=== PATIENT | male | born 1965 | race Caucasian/White ===

== ENCOUNTER 2017-10-19 06:07 | Emergency (ER) | payer OTHER ==
[~2017-10-19] VITALS: Ht 177.8 cm; Wt 102.1 kg
--- NOTE | ~2017-10-19 | EKG ---
[place] [address] [address] [place] [address] ELECTROCARDIOGRAM REPORT Name: CHRISTINA GOLDEN Room #: DEP Frantz#: [id number] Admission: 10/19/17 Attend Phys: Discharge: 10/19/17 Date of : 65 Report #: [id number] THIS REPORT FOR: //name// [facility] ED Test Date: 2017-10-19 Test Time: 06:20:47 Pat Name: CHRISTINA GOLDEN Department: Room: Gender: [employer]sembling [employer]: ELIJAH : 1965 Requested By: Na Vines Order Number: [id number] MD: Saurabh Tineo Measurements Intervals [place] Rate: 72 P: 47 SC: 163 QRS: 53 QRSD: 91 T: -16 QT: 393 QTc: 431 Interpretive Statements Sinus rhythm Borderline T abnormalities, inferior leads No previous ECG available for comparison Electronically Signed On 10-20-2017 14:03:59 CDT by Saurabh Tineo [email or web address] <ELECTRONICALLY SIGNED> By: Saurabh Tineo MD, [facility] 10/20/17 1403 0620 9 Saurabh Tineo MD, FACC /EPI
[~2017-10-19 06:07] MED LIST: ADVIL100 M2 PO
[2017-10-19] MEDS ORDERED: AVAPRO75 MG PO (06:15)
[2017-10-19 07:57] LABS: ABSOLUTE NEUTROPHILS 3.5 thou/uL (1.4-8.2); BASOPHILS 0.7 % (0.0-2.0); EOSINOPHILS 1.4 % (0.0-3.0); HEMATOCRIT 39.6 % (42.0-52.0); HEMOGLOBIN 13.5 gm/dL (14.0-18.0); LYMPHOCYTES 27.4 % (24.0-44.0); MCH 29.7 pg (26.0-34.0); MCV 87.4 fL (80.0-100.0); MONOCYTES 8.4 % (1.0-8.0); PLATELET COUNT 213 thou/uL (150-400); POLYS 62.1 % (36.0-66.0); RBC 4.53 mil/uL (4.50-6.00); WBC 5.5 thou/uL (4.0-11.0)
[2017-10-19 08:05] LABS: ANION GAP 8 mmol/L (7-16); BUN 20 mg/dL (7-18); CALCIUM 8.6 mg/dL (8.5-10.1); CHLORIDE 104 mmol/L (98-107); CO2 26 mmol/L (21-32); GLUCOSE 109 mg/dL (74-106); POTASSIUM 4.3 mmol/L (3.5-5.1); SODIUM 138 mmol/L (136-145)
[2017-10-19 08:14] LABS: TROPONIN-I <0.06 ng/mL (<0.06)
[2017-10-19] MEDS ORDERED: MOBIC15 MG PO (09:07)
== END 2017-10-19 09:21 | disposition home or self-care (01) ==
LOC: ER 06:07
PROVIDERS: Emergency Medicine
DX: R07.81 Pleurodynia (principal); R07.89 Other chest pain; M54.9 Dorsalgia, unspecified; G89.29 Other chronic pain; R11.0 Nausea; R61 Generalized hyperhidrosis; I10 Essential (primary) hypertension; Z90.89 Acquired absence of other organs; Z77.22 Contact with and (suspected) exposure to environmental tobacco smoke (acute) (chronic)